=== PATIENT | male | born 1975 | race Two or more races ===

== ENCOUNTER 2017-11-30 12:00 | Emergency (ER) | payer OTHER, SELFPAY ==
[2017-11-30 14:34] VITALS: BP 112/69; PULSE 61; RESP 18; TEMP 36.6; O2SAT 100; BMI 25.0
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
[2017-11-30 15:47] VITALS: BP 138/77; PULSE 76; RESP 22; TEMP 36.7; O2SAT 98
== END 2017-11-30 15:49 | disposition home or self-care (01) ==
PROVIDERS: Emergency Provider Nurse Practitioner Family; Family Provider Family Medicine; PCP Family Medicine
DX: S80.12XA Contusion of left lower leg, initial encounter (principal); W22.8XXA Striking against or struck by other objects, initial encounter; Y92.73 Farm field as the place of occurrence of the external cause; E11.9 Type 2 diabetes mellitus without complications; Z79.84 Long term (current) use of oral hypoglycemic drugs; F17.210 Nicotine dependence, cigarettes, uncomplicated
CPT/HCPCS: 73590; 99202

== ENCOUNTER 2021-07-28 09:31 | Emergency (ER) | payer BC, SELFPAY ==
[2021-07-28 09:35] VITALS: BP 124/74; PULSE 77; RESP 21; TEMP 36.6; O2SAT 98; BMI 26.2
--- NOTE | 2021-07-28 10:09 | HMH.EDUTC ---
[facility] [place] Disposition Clinical Impression: Strep sore throat Disposition: Home, Self-Care Condition on Discharge: Good Instructions: DI for COVID-19 (Suspected or Confirmed ), Preventing the Spread of Coronavirus Discharge Instructions Additional Instructions: covid swab was sent to lab, call later today for results. self isolate until test results are known to be negative No sign of a bacterial infection. Likely viral. Viruses can take 7-14 days to run their course. Nasal saline and bulb syringe or nose [place] to remove nasal drainage to help with nasal congestion. Hard to eat, drink, sleep with nasal congestion so important to keep this cleaned out. Monitor temp. Tylenol or Motrin as needed for pain or fever Encourage fluids, water, Gatorade, Powerade, Pedialyte if infant/toddler/child Warm salt water gargles Warm fluids Sore throat lozenges Sleep elevated Humidifier/vaporizer Follow-up immediately for new or worsening symptoms or no noticeable improvement over the next 48-72 hours. Referrals: Mariel Ferreira [Primary Care Provider] - Time of Disposition: 10:15 Medical Decision Making - Hunter Inquiry Pt receiving controlled substance: No Vital Signs: 07/28/21 09:35 Temperature 97.9 F Temperature Source Oral Pulse Rate [Right Brachial] 77 Respiratory Rate 21 Blood Pressure [Right Arm] 124/74 Blood Pressure Mean [Right Arm] 90 Blood Pressure Source [Right Arm] Automatic Cuff Blood Pressure Position [Right Arm] Sitting 02 Sat by Pulse Oximetry 98 Oxygen Delivery Method Room Air Orders (Tests/Meds): ORDERS Category Date Time Status Covid-19 Nasal PCR ([place]) Routine Lab 07/28/21 09:45 Received [facility] [place] HPI - General Chief complaint: [facility]gent [facility] Stated complaint: congestion Time Seen by Provider: 07/28/21 10:09 Mode of Arrival: Ambulatory Source of Information: Patient Limitations: No Limitations Description of Symptoms (Recalled from Triage Doc. by RN): PATIENT C/O CONGESTION X 2 DAYS HEENT Symptoms (Recalled from RN notes): Yes Resp Symptoms (Recalled from RN notes): No Skin Symptoms (Recalled from RN notes): No MS Symptoms (Recalled from RN notes): No Functional Status (Recalled from RN notes): WNL - History of Present Illness Provider Complaint: 46 yr old male presents for sore throat,congestion and headache for 2 days - Related Data Home Medications Medication Instructions Recorded Confirmed Metformin HCl [Metformin 850mg 850 mg PO DAILY 11/30/17 04/27/19 Tablet] Previous Rx's Medication Instructions Recorded albuterol sulfate 90 mcg/actuation 2 puff INHALATION Q6H PRN 7 Days 04/27/19 aerosol inhaler #6.7 g amoxicillin 500 mg capsule 500 mg PO Q12H 10 Days #20 cap 04/27/19 Allergies Allergy/AdvReac Type Severity Reaction Status Date / Time No Known Allergies Allergy Verified 04/27/19 19:28 - Worker's Comp Is this a Worker's Comp case?: No [place] History - Hepatitis A Screen Drug use history?: No High risk sexual behaviors?: No History of sexually transmitted infection?: No Currently employed?: No Childcare worker?: No Do you have indoor plumbing?: Yes Do you have electricity?: Yes Attestation statement:: This patient has been screened for Hepatitis A risk factors. I have reviewed the patient's past medical history: Yes Medical History: Reports:: Cancer, Diabetes Mellitus Type 2 Denies:: Diabetes Mellitus Type 1, Hypertension, MRSA Other Surgeries: Yes: Other Amputation: No - Social History Smoking Status: Current every day smoker Tobacco Type: cigarettes Alcohol Intake: current Alcohol Intake Frequency:: holidays/special occasions only Substance Use Type: denies use Occupational Status: employed Housing: house Household Members: family Family Hx:: Non-contributory ROS Obtained: Yes Systems reviewed as appropriate & no additional complaints - Constitutional Constitutional: Reports system reviewed and no additional complaints, excep
[2021-07-28 10:16] VITALS: BP 124/74; PULSE 77; RESP 21; TEMP 36.6; O2SAT 98
[2021-07-28 10:17] LABS: UTC Strep Screen (Rapid) Negative (Negative)
== END 2021-07-28 10:26 | disposition home or self-care (01) ==
PROVIDERS: Emergency Provider Nurse Practitioner Family; PCP Physician Assistant
DX: J02.0 Streptococcal pharyngitis (principal)
CPT/HCPCS: 87880; 99203; C9803; G0463; U0003; U0005

== ENCOUNTER 2022-02-02 14:01 | Emergency (ER) | payer BC, SELFPAY ==
[2022-02-02 14:02] VITALS: BP 105/67; PULSE 71; RESP 17; TEMP 36.6; O2SAT 100; BMI 24.3
--- NOTE | 2022-02-02 14:39 | HMH.EDABDPAI ---
ED Disposition Clinical Impression: Abdominal pain Qualifiers: Abdominal location: generalized Qualified Code(s): R10.84 - Generalized abdominal pain Disposition: Home, Self-Care Condition on Discharge: Fair Instructions: DI for Acute Abdominal Pain Additional Instructions: Please follow-up with your primary care doctor in about 1 week if your symptoms do not improve. Meanwhile continue taking all your medications as prescribed. You may consider taking some [id number] antacids for your symptoms to see if that improves. Return to the emergency department immediately if your symptoms worsen or if you feel any new symptoms. Referrals: Aria Colon APRN [Primary Care Provider] - - Critical Care Critical Care Time: No Attestation: On 02/02/22, the high probability of a clinically significant, sudden or life threatening deterioration of the following system(s) required my full and direct attention, intervention and personal management. The time I documented below is in addition to time spent performing reported procedures but includes the following listed in this critical care notation. Medical Decision Making - Medical Records Medical records reviewed: Yes: I reviewed the patient's medical records. - Hunter Inquiry Pt receiving controlled substance: No Vital Signs: 02/02/22 14:02 02/02/22 15:00 02/02/22 15:30 Temperature 97.9 F Temperature Source Oral Pulse Rate 68 62 Pulse Rate [Right] 71 Respiratory Rate 17 16 17 Blood Pressure 108/77 L 116/79 Blood Pressure [Right Arm] 105/67 L Blood Pressure Mean 87 90 Blood Pressure Mean [Right Arm] 79 Blood Pressure Source [Right Arm] Automatic Cuff Blood Pressure Position [Right Arm] Supine 02 Sat by Pulse Oximetry 100 100 100 Oxygen Delivery Method Room Air - Lab Data Lab results reviewed: Yes: I reviewed the patient's lab results. Lab Results 02/02/22 16:07: WBC 4.8, RBC 4.69, Hgb 15.1, Hct 46.2, MCV 98.6 H, MCH 32.2 H, MCHC 32.7, RDW 13.0, Plt Count 197, MPV 9.0, Neut % (Auto) 61.2, Lymph % (Auto) 29.5, Barren % (Auto) 5.8, Eos % (Auto) 2.9, Baso % (Auto) 0.5, Neut # (Auto) 3.0, Lymph # (Auto) 1.4, Barren # (Auto) 0.3, Eos # (Auto) 0.1, Baso # (Auto) 0.0 02/02/22 16:07: Sodium 140, Potassium 4.5, Chloride 104, Carbon Dioxide 32 H, Anion Gap 8.5, BUN 10, Creatinine 0.70, Estimated Creat Clear 130, Estimated GFR 121, Est GFR ( Amer) 146, Glucose 226 H, Calcium 8.6, Total Bilirubin 0.6, AST 26, ALT 29, Alkaline Phosphatase 62, Total Protein 7.0, Albumin 4.5, Globulin 2.5, Albumin/Globulin Ratio 1.8, Lipase 166 02/02/22 17:24: Urine Color Yellow, Urine Appearance Clear, Urine pH 7.0, Ur Specific [place] 1.020, Urine Protein Negative, Urine Glucose (UA) 3+, Urine Ketones Negative, Urine Blood Negative, Urine Nitrate Negative, Urine Bilirubin Negative, Urine Urobilinogen 0.2, Ur Leukocyte Esterase Negative, Urine WBC Occasional Result diagrams: 02/02/22 16:07 02/02/22 16:07 Orders (Tests/Meds): ED MEDICATIONS Generic Name Dose Route Start Last Admin Trade Name Freq PRN Reason Stop Dose Admin Sodium Chloride 10 ml 02/02/22 16:02 Sodium Chloride 0.9% 10ml Flush Syringe IV 03/04/22 16:01 NEEDED PRN Maintain IV Site Discontinued Medications Generic Name Dose Route Start Last Admin Trade Name Freq PRN Reason Stop Dose Admin Diatrizoate Meglum/Diatrizoate Sod 30 ml 02/02/22 14:45 02/02/22 15:28 Diatrizoate Jocelyne 66% & Diatrizoate Na 10% 30ml Udc PO 02/02/22 14:46 30 ml ONCE ONE Administration Iopamidol 75 ml 02/02/22 17:17 02/02/22 17:18 Iopamidol-370 (76%);100ml Bottle IV 02/02/22 17:18 75 ml ONCE ONE Administration Sodium Chloride 10 ml 02/02/22 17:17 02/02/22 17:19 Sodium Chloride 0.9% 10ml Syr (Rad Only) IV 02/02/22 17:18 10 ml ONCE ONE Administration Medical Decision Narrative: The patient's work-up in the emergency department and not reveal any life-threatening or d
--- NOTE | 2022-02-02 14:45 | CT_ITS ---
PROCEDURE INFORMATION: Exam: CT Abdomen And Pelvis With Contrast Exam date and time: 02/02/2022 5:09 PM Age: 46 years old Clinical indication: Abdominal pain; Acute TECHNIQUE: Imaging protocol: Computed tomography of the abdomen and pelvis with contrast. Radiation optimization: All CT scans at this facility use at least one of these dose optimization techniques: automated exposure control; mA and/or kV adjustment per patient size (includes targeted exams where dose is matched to clinical indication); or iterative reconstruction. Contrast material: ISOVUE; Contrast volume: 75 ml; Contrast route: IV; Other contrast: Oral, gastrografin , 50ml ; COMPARISON: No relevant prior studies available. FINDINGS: Liver: Normal. No mass. Gallbladder and bile ducts: Normal. No calcified stones. No ductal dilation. Pancreas: Normal. No ductal dilation. Spleen: Scattered granulomas are demonstrated in the spleen. Adrenal glands: Normal. No mass. Kidneys and ureters: Normal. No hydronephrosis. Stomach and bowel: Unremarkable. No obstruction. No mucosal thickening. Appendix: No evidence of appendicitis. Intraperitoneal space: Unremarkable. No free air. No significant fluid collection. Arteries: Unremarkable. No abdominal aortic aneurysm. Lymph nodes: Unremarkable. No enlarged lymph nodes. Urinary bladder: Unremarkable as visualized. Reproductive: Unremarkable as visualized. Bones/joints: Postoperative change consistent with anterior posterior spinal fusion at L5-S1. Soft tissues: Unremarkable. IMPRESSION: 1. Evidence of prior granulomatous disease. 2. No evidence of acute soft tissue or osseous abnormality.
[2022-02-02 15:00] VITALS: BP 108/77; PULSE 68; RESP 16; O2SAT 100
[2022-02-02 15:30] VITALS: BP 116/79; PULSE 62; RESP 17; O2SAT 100
--- NOTE | 2022-02-02 15:40 | PC.NURSE ---
PT finished contrast at this time. Notified rad. Advised pt he would be going for CT scan in approx. 1 10/28. No new needs at this time
[2022-02-02 16:21] LABS: Basophils % 0.5 % (0.1-2.0); Eosinophils # 0.1 K/mm3 (0.0-0.4); Eosinophils % 2.9 % (0.1-12.0); Hematocrit 46.2 % (42.0-52.0); Hemoglobin 15.1 g/dL (14.1-18.0); Lymphocytes # 1.4 K/mm3 (0.7-4.5); Lymphocytes % 29.5 % (10-50); Mean Corpuscular HGB Conc 32.7 g/dL (31.8-35.4); Mean Corpuscular Hemoglobin 32.2 pg (27.0-31.2); Mean Corpuscular Volume 98.6 fl (80-94); Monocytes # 0.3 K/mm3 (0.1-1.0); Monocytes % 5.8 % (1.7-9.3); Neutrophils % 61.2 % (37.0-80.0); Platelet Count 197 K/mm3 (142-424); Red Blood Count 4.69 M/mm3 (4.60-6.20); White Blood Count 4.8 K/mm3 (4.8-10.8)
[2022-02-02 16:28] LABS: Chloride 104 mmol/L (98-107); Potassium 4.5 mmoL/L (3.5-5.1); Sodium 140 mmol/L (136-145)
[2022-02-02 16:31] LABS: Alanine Aminotransferase 29 U/L (12-78); Albumin Level 4.5 g/dl (3.5-5.0); Albumin/Globulin Ratio 1.8 (1.1-1.8); Alkaline Phosphatase 62 U/L (38-126); Anion Gap 8.5 mEq/L (5-15); Aspartate Amino Transferase 26 U/L (17-59); Bilirubin,Total 0.6 mg/dl (0.2-1.3); Blood Urea Nitrogen 10 mg/dl (9-20); Calcium 8.6 mg/dl (8.4-10.2); Carbon Dioxide 32 mmol/L (22.0-30.0); Creatinine Clearance Estimated 130 mL/min (50-200); Estimated Glomerular Filt Rate 121 ml/min (>60); GFR (African American) 146 ML/MIN (>60); Globulin 2.5 g/dL (1.3-3.2); Glucose 226 mg/dl (74-100); Lipase 166 U/L (23-300)
--- NOTE | 2022-02-02 17:20 | PC.NURSE ---
PT returned from CT
[2022-02-02 17:33] LABS: Microscopic, Urine URINE MICROSCOPIC (MICROSCOPIC)
[2022-02-02 17:46] LABS: Appearance,Urine CLEAR (Clear); Bilirubin,Urine Negative (Negative); Blood, Urine Negative (Negative); Color,Urine YELLOW (Yellow); Glucose,Urine (UA) 3+ (Negative); Ketones,Urine Negative (Negative); Leukocyte Esterase,Urine Negative (Negative); Nitrate,Urine Negative (Negative); Protein,Urine Negative (Negative); Urobilinogen,Urine 0.2 EU/dl (0.2)
[2022-02-02 18:00] LABS: WBC,Urine Occasional #/hpf (0-3)
[2022-02-02 18:29] VITALS: BP 108/65; PULSE 60; RESP 18; TEMP 36.6; O2SAT 100
== END 2022-02-02 18:30 | disposition home or self-care (01) ==
PROVIDERS: Emergency Provider Emergency Medicine; PCP Nurse Practitioner Family
DX: R10.84 Generalized abdominal pain (principal); M54.50 Low back pain, unspecified; E11.65 Type 2 diabetes mellitus with hyperglycemia; K59.00 Constipation, unspecified; F17.210 Nicotine dependence, cigarettes, uncomplicated; Z79.52 Long term (current) use of systemic steroids; Z79.51 Long term (current) use of inhaled steroids; Z79.84 Long term (current) use of oral hypoglycemic drugs; Z85.9 Personal history of malignant neoplasm, unspecified
CPT/HCPCS: 74177; 80053; 81001; 83690; 85025; 99284; Q9967

== ENCOUNTER 2022-05-15 20:06 | Emergency (ER) | payer BC, SELFPAY ==
[2022-05-15 20:07] VITALS: BP 118/75; PULSE 70; RESP 18; TEMP 36.7; O2SAT 97; BMI 24.3
--- NOTE | 2022-05-15 21:31 | HMH.EDEYEP ---
ED Disposition Clinical Impression: Corneal abrasion Qualifiers: Encounter type: initial encounter Laterality: left Qualified Code(s): S05.02XA - Injury of conjunctiva and corneal abrasion without foreign body, left eye, initial encounter Disposition: Home, Self-Care Condition on Discharge: Good Instructions: DI for Corneal Abrasion Additional Instructions: see eye provider in am Referrals: Aria Colon APRN [Primary Care Provider] - - Critical Care Critical Care Time: No Attestation: On 05/15/22, the high probability of a clinically significant, sudden or life threatening deterioration of the following system(s) required my full and direct attention, intervention and personal management. The time I documented below is in addition to time spent performing reported procedures but includes the following listed in this critical care notation. Medical Decision Making - Medical Records Medical records reviewed: Yes: I reviewed the patient's medical records. - Hunter Inquiry Pt receiving controlled substance: No Vital Signs: 05/15/22 20:07 Temperature 98.1 F Temperature Source Oral Pulse Rate [Right] 70 Respiratory Rate 18 Blood Pressure [Right Arm] 118/75 Blood Pressure Mean [Right Arm] 89 02 Sat by Pulse Oximetry 97 - Lab Data Lab results reviewed: Yes: I reviewed the patient's lab results. Medical Decision Narrative: has acute lt corneal abrasion - patched eye and will ask pt to see eye dr in am Eye Problem HPI - General Chief complaint: Eye Problems Stated complaint: [id number]/@1800 Left eye injury Time Seen by Provider: 05/15/22 20:45 Mode of Arrival: Ambulatory Source of Information: Patient, Medical Record Limitations: No Limitations Description of Symptoms (Recalled from ER Triage Doc. by RN): pt states was lifting chicken cage and piece of wire scratched lt eye - History of Present Illness HPI Narrative: scratched lt eye this afternoon with pain chief complaint: eye pain, eye injury Onset (ago): hour(s) Onset description: sudden Duration: constant Location: left eye Eye Symptoms: foreign body sensation Place: home Mechanism: direct trauma Severity: moderate Associated symptoms: none Treatments Prior to Arrival: none - Related Data Patient tetanus UTD: No Home Medications Medication Instructions Recorded Confirmed Metformin HCl [Metformin 850mg 850 mg PO DAILY 11/30/17 04/27/19 Tablet] Previous Rx's Medication Instructions Recorded albuterol sulfate 90 mcg/actuation 2 puff INHALATION Q6H PRN 7 Days 04/27/19 aerosol inhaler #6.7 g amoxicillin 500 mg capsule 500 mg PO Q12H 10 Days #20 cap 04/27/19 predniSONE [Prednisone 20mg 20 mg PO BID 3 Days #6 tab 07/28/21 Tab] Allergies Allergy/AdvReac Type Severity Reaction Status Date / Time No Known Allergies Allergy Verified 04/27/19 19:28 [facility] History - Hepatitis A Screen Attestation statement:: This patient has been screened for Hepatitis A risk factors. I have reviewed the patient's past medical history: Yes Medical History: Reports:: Cancer, Diabetes Mellitus Type 2 Denies:: Diabetes Mellitus Type 1, Hypertension, MRSA Other Surgeries: Yes: Other Amputation: No - Social History Smoking Status: Current every day smoker Tobacco Type: cigarettes Alcohol Intake: current Alcohol Intake Frequency:: holidays/special occasions only Substance Use Type: denies use Occupational Status: employed Housing: house Household Members: family Family Hx:: Non-contributory ROS Obtained: Yes All systems reviewed & no additional complaints - Constitutional Constitutional: Denies fever(s) - Eyes Eyes: Reports as per HPI, Denies change in vision, Denies eye discharge, Reports eye pain, Denies photophobia - ENT Ears, Nose, Mouth, and Throat: Denies facial pain - Cardiovascular Cardiovascular: Denies chest pain - Respiratory Respiratory: Denies dyspnea - Gastrointestinal Gastrointesting
[2022-05-15 21:49] VITALS: BP 118/75; PULSE 70; RESP 18; TEMP 36.7; O2SAT 97
== END 2022-05-15 21:50 | disposition home or self-care (01) ==
PROVIDERS: Emergency Provider Emergency Medicine; PCP Nurse Practitioner Family
DX: S05.02XA Injury of conjunctiva and corneal abrasion without foreign body, left eye, initial encounter (principal); Z23 Encounter for immunization
CPT/HCPCS: 90714; 99283

== ENCOUNTER 2022-09-30 10:52 | Emergency (ER) | payer BC, SELFPAY ==
[2022-09-30 13:10] VITALS: BP 131/76; PULSE 61; RESP 19; TEMP 36.7; O2SAT 99; BMI 24.8
--- NOTE | 2022-09-30 13:34 | EXP.UTC ---
Discharge Plan Disposition Patient Disposition: Home, Self-Care Condition: Good Prescriptions Prescriptions: New omeprazole 20 mg capsule,delayed release(DR/EC) 20 mg PO DAILY Qty: 30 0RF No Action albuterol sulfate 90 mcg/actuation HFA aerosol inhaler 2 puff INHALATION Q6H PRN (Reason: bronchitis) 7 Days Qty: 6.7 0RF Rx Instructions: administer with spacer amoxicillin 500 mg capsule 500 mg PO Q12H 10 Days Qty: 20 0RF prednisone 20 MG tablet 20 mg PO BID 3 Days Qty: 6 0RF metformin 850 MG tablet 850 mg PO DAILY Referrals Follow up/Referrals: Aria Colon APRN [Primary Care Provider] - See instructions Activity Restrictions/Add. Instructions Additional Instructions/Restrictions: Avoid GERD exacerbating agents (ETOH, caffeine, nicotine, chocolate, fatty foods) Sleep with head of bed elevated Avoid eating within 3hr of sleep Take medication as prescribed Avoid spicy or greasy foods Follow up with your Family Doctor for further evaluation and testing if needed Straight to The ER if any life threatening symptoms Clinical Impressions Clinical Impression: GERD (gastroesophageal reflux disease) Instructions Patient Instructions: Omeprazole, DI for Gastroesophageal Reflux Disease (GERD), GERD Diet, Heartburn -- Overview Discharge ED Provider: Alka Rome [facility] [place] General Stated complaint: Heartburn, constipation, burping, vomitting Mode of Arrival: Ambulatory Source of Information: Patient Limitations: No Limitations Time Seen by Provider: 09/30/22 13:41 Description of Symptoms (Recalled from Triage Doc. by RN): PATIENT C/O CONSTIPATION AND ACID REFLUX X 2 DAYS HEENT Symptoms (Recalled from RN notes): No Resp Symptoms (Recalled from RN notes): No Skin Symptoms (Recalled from RN notes): No MS Symptoms (Recalled from RN notes): No Functional Status (Recalled from RN notes): WNL History of Present Illness Provider Complaint: Patient states that he has bowel issues and he is on Linzess that he takes when he gets constipated and he took it and had large BM on Friday States that he has been having issues belching up acid States that when he lays down sometimes he will belch it up and it rodriguez his throat States that he gets heart burn after eating spicy foods and he has always eat them and not had it Denies abdominal pain denies vomiting blood Related Data Home Medications Medication Instructions Recorded Confirmed metformin 850 mg tablet 850 mg PO DAILY Diabetes 11/30/17 04/27/19 Previous Rx's Medication Instructions Recorded albuterol sulfate 90 mcg/actuation 2 puff inhalation Q6H PRN 04/27/19 aerosol inhaler bronchitis 7 days #6.7 grams amoxicillin 500 mg capsule 500 mg PO Q12H sinusitis 10 days 04/27/19 #20 caps prednisone 20 mg tablet 20 mg PO BID 3 days #6 tabs 07/28/21 omeprazole 20 mg capsule,delayed 20 mg PO DAILY #30 caps 09/30/22 release Allergies Allergy/AdvReac Type Severity Reaction Status Date / Time No Known Allergies Allergy Verified 04/27/19 19:28 Worker's Comp Is this a Worker's Comp case?: No [facility] Disclaimer: The information contained in this section may have been updated after the patient was seen, as this information can be updated by other users. Medical History (Updated 09/30/22 @ 14:11 by Alka Rome APRN) No significant past medical history Social History (Updated 09/30/22 @ 13:21 by Yuni Alston RN) Smoking Status: Current every day smoker tobacco type: cigarettes alcohol intake: current substance use type: denies use current occupational status: employed Travel in the last 8 weeks: None household members: family housing: house ROS Obtained: Yes All systems reviewed & no additional complaints except as documented and Yes Systems reviewed as appropriate & no additional complaints except as documented Constitutional Constitutional: Reports system reviewed and no additional complaints,
[2022-09-30 14:13] VITALS: BP 131/76; PULSE 61; RESP 19; TEMP 36.7; O2SAT 99
== END 2022-09-30 14:16 | disposition home or self-care (01) ==
PROVIDERS: Emergency Provider Nurse Practitioner; PCP Nurse Practitioner Family
DX: K21.9 Gastro-esophageal reflux disease without esophagitis (principal); K59.00 Constipation, unspecified; R11.10 Vomiting, unspecified
CPT/HCPCS: 99212; G0463

== ENCOUNTER 2023-04-14 17:08 | Emergency (ER) | payer BC, SELFPAY ==
[2023-04-14 17:20] VITALS: BP 118/79; PULSE 67; RESP 17; TEMP 36.8; O2SAT 100; BMI 23.4
[2023-04-14 17:39] LABS: UTC Strep Screen (Rapid) Negative (Negative)
[2023-04-14 17:40] VITALS: BP 118/79; PULSE 67; RESP 17; TEMP 36.8; O2SAT 100
--- NOTE | 2023-04-14 17:40 | EXP.UTC ---
Discharge Plan Disposition Patient Disposition: Home, Self-Care Condition: Good Prescriptions Prescriptions: New amoxicillin 875 mg tablet 875 mg PO Q12H Qty: 20 0RF fluticasone propionate [Flonase Allergy Relief] 50 mcg/actuation spray,suspension 1 - 2 spray intranasal DAILY Qty: 16 0RF Rx Instructions: administer into each nostril No Action albuterol sulfate 90 mcg/actuation HFA aerosol inhaler 2 puff INHALATION Q6H PRN (Reason: bronchitis) 7 Days Qty: 6.7 0RF Rx Instructions: administer with spacer amoxicillin 500 mg capsule 500 mg PO Q12H 10 Days Qty: 20 0RF prednisone 20 MG tablet 20 mg PO BID 3 Days Qty: 6 0RF omeprazole 20 mg capsule,delayed release(DR/EC) 20 mg PO DAILY Qty: 30 0RF metformin 850 MG tablet 850 mg PO DAILY Referrals Follow up/Referrals: Aria Colon APRN [Primary Care Provider] - See instructions Activity Restrictions/Add. Instructions Additional Instructions/Restrictions: *Monitor Temp, Over the counter Motrin or Tylenol as directed/as needed Tylenol every 4 hours and Motrin every 6 hours (as long as your family doctor has told you that you can take it) for fever or pain. and straight to ER if unable to lower temp less than 101.0 after medication given *Warm salt water gargles may help to soothe the throat *Throat Lozenges? *Warm fluids like tea with honey may help to soothe the throat? *Sleep elevated *Humidifier/Vaporizer *Flonase 2 sprays in each nostril daily but be aware that it may take 2-3 days before you notice improvement Your throat swab was sent for culture. Those results are typically sent to your primary care. Be sure to follow up in 2-3 days with your family doctor/primary care physician if no improvement so they can review those result and treat if necessary. If you don?t have a primary care doctor, I recommend you get one but in the mean time, you will have to return to a walk in clinic Follow up IMMEDIATELY for new or worsening symptoms or no Noticeable improvement over the next 48-72 hours. 911 for difficulty breathing or swallowing Clinical Impressions Clinical Impression: Pharyngitis Instructions Patient Instructions: Middle Ear Infection, Sore Throat Discharge ED Provider: Alka Rome [facility] General Stated complaint: sore throat, right ear pain Mode of Arrival: Ambulatory Source of Information: Patient and Significant Other Limitations: No Limitations Time Seen by Provider: 04/14/23 17:40 Description of Symptoms (Recalled from Triage Doc. by RN): PATIENT C/O SORE THROAT AND RIGHT EAR PAIN X 4 DAYS HEENT Symptoms (Recalled from RN notes): Yes Resp Symptoms (Recalled from RN notes): No Skin Symptoms (Recalled from RN notes): No MS Symptoms (Recalled from RN notes): No Functional Status (Recalled from RN notes): WNL History of Present Illness Provider Complaint: Patient states that he has been having sore throat and pain in his right ear for about 4 days that has continued to get worse States that hurts in his throat and ear when he swallows States that he has been having some drainage in the back of his throat and worse in the morning so today when he was still not feeling well he came in to get checked Related Data Home Medications Medication Instructions Recorded Confirmed metformin 850 mg tablet 850 mg PO DAILY Diabetes 11/30/17 04/27/19 Previous Rx's Medication Instructions Recorded albuterol sulfate 90 mcg/actuation 2 puff inhalation Q6H PRN 04/27/19 aerosol inhaler bronchitis 7 days #6.7 grams amoxicillin 500 mg capsule 500 mg PO Q12H sinusitis 10 days 04/27/19 #20 caps prednisone 20 mg tablet 20 mg PO BID 3 days #6 tabs 07/28/21 omeprazole 20 mg capsule,delayed 20 mg PO DAILY #30 caps 09/30/22 release amoxicillin 875 mg tablet 875 mg PO Q12H #20 tabs 04/14/23 fluticasone propionate 50 1 - 2 spray intranasal DAILY #16 04/14/23 mcg/actuation nasal grams spray,s
== END 2023-04-14 18:00 | disposition home or self-care (01) ==
PROVIDERS: Emergency Provider Nurse Practitioner; PCP Nurse Practitioner Family
DX: J02.9 Acute pharyngitis, unspecified (principal); H66.91 Otitis media, unspecified, right ear; F17.210 Nicotine dependence, cigarettes, uncomplicated
CPT/HCPCS: 87880; 99212; 99214; G0463

== ENCOUNTER 2023-05-28 00:36 | Emergency (ER) | payer BC, SELFPAY ==
[2023-05-28 00:38] VITALS: BP 156/87; PULSE 67; RESP 18; TEMP 36.6; O2SAT 98; BMI 24.2
--- NOTE | 2023-05-28 00:48 | ECG_ITS ---
APPROVED REPORT Exam: Resting ECG HR:63 bpm ECG Measurements Heart Rate 63 AXES TX 159 P 62 QRSd 96 QRS 56 QT 388 T 60 QTc 396 Conclusion SINUS RHYTHM NORMAL ECG UNCONFIRMED REPORT Electronically signed by : Itz Kenyon MD 05/28/2023 08:01:10
--- NOTE | 2023-05-28 00:54 | XR_ITS ---
PROCEDURE INFORMATION: Exam: XR Chest Exam date and time: 05/28/2023 12:57 AM Age: 47 years old Clinical indication: Cough; Additional info: Cough/ congestion TECHNIQUE: Imaging protocol: Radiologic exam of the chest. Views: 2 views. Total images: 2 COMPARISON: CT ABDOMEN PELVIS W CON 02/02/2022 5:09 PM FINDINGS: Lungs: Unremarkable. No consolidation. No pulmonary vascular congestion or edema. Pleural spaces: Unremarkable. No pleural effusion. No pneumothorax. Heart/Mediastinum: Unremarkable. No cardiomegaly. No mediastinal widening or hilar enlargement. Bones/joints: Unremarkable. IMPRESSION: No radiographically acute cardiopulmonary process.
--- NOTE | 2023-05-28 00:55 | HMH.EDGENADL ---
Discharge Plan Disposition Patient Disposition: Home, Self-Care Condition: Good Prescriptions Prescriptions: New tjmsurfajoimfba-[id number]-LS [Bromfed DM] 2-30-10 mg/5 mL syrup 5 ml PO Q6H PRN (Reason: congestion) Qty: 118 0RF No Action albuterol sulfate 90 mcg/actuation HFA aerosol inhaler 2 puff INHALATION Q6H PRN (Reason: bronchitis) 7 Days Qty: 6.7 0RF Rx Instructions: administer with spacer amoxicillin 500 mg capsule 500 mg PO Q12H 10 Days Qty: 20 0RF prednisone 20 MG tablet 20 mg PO BID 3 Days Qty: 6 0RF omeprazole 20 mg capsule,delayed release(DR/EC) 20 mg PO DAILY Qty: 30 0RF metformin 850 MG tablet 850 mg PO DAILY amoxicillin 875 mg tablet 875 mg PO Q12H Qty: 20 0RF fluticasone propionate [Flonase Allergy Relief] 50 mcg/actuation spray,suspension 1 - 2 spray intranasal DAILY Qty: 16 0RF Rx Instructions: administer into each nostril Referrals Follow up/Referrals: Aria Colon APRN [Primary Care Provider] - See instructions Activity Restrictions/Add. Instructions Additional Instructions/Restrictions: At this time was felt you are safe to be discharged home. If new or worsening symptoms please do not hesitate to return to the emergency department. Please take your medication as prescribed. Please continue to take your inhaler at home as needed. Clinical Impressions Clinical Impression: Viral respiratory infection Discharge ED Provider: Giuliano Krishnan General Adult HPI General Chief complaint: Shortness of Breath/Dyspnea Stated complaint: SOA,chest congestion Time Seen by Provider: 05/28/23 00:49 Mode of Arrival: Ambulatory Source of Information: Patient Limitations: No Limitations Description of Symptoms (Recalled from ER Triage Doc. by RN): Pt states he has had a cough for past week, today he felt worse and began feeling SOA. Pt also states he has nausea but no vomiting. History of Present Illness HPI narrative: Patient is a 47-year-old male with past medical history of psv-yelddwx-wscwvwllv diabetes, seasonal allergies who presents emergency department for evaluation of cough and congestion. Onset was acute, occurring 7 days ago. Due to worsening symptoms today he presents here for continued evaluation. Patient denies chest pain, abdominal pain, other acute complaints at this time. Patient has been using albuterol inhaler at home with some success. Related Data Home Medications Medication Instructions Recorded Confirmed metformin 850 mg tablet 850 mg PO DAILY Diabetes 11/30/17 04/27/19 Previous Rx's Medication Instructions Recorded albuterol sulfate 90 mcg/actuation 2 puff inhalation Q6H PRN 04/27/19 aerosol inhaler bronchitis 7 days #6.7 grams amoxicillin 500 mg capsule 500 mg PO Q12H sinusitis 10 days 04/27/19 #20 caps prednisone 20 mg tablet 20 mg PO BID 3 days #6 tabs 07/28/21 omeprazole 20 mg capsule,delayed 20 mg PO DAILY #30 caps 09/30/22 release amoxicillin 875 mg tablet 875 mg PO Q12H #20 tabs 04/14/23 fluticasone propionate 50 1 - 2 spray intranasal DAILY #16 04/14/23 mcg/actuation nasal grams spray,suspension (Flonase Allergy Relief) [id number] 5 ml PO Q6H PRN congestion #118 mL 05/28/23 2 mg-30 mg-10 mg/5 mL oral syrup (Bromfed DM) Allergies Allergy/AdvReac Type Severity Reaction Status Date / Time No Known Allergies Allergy Verified 04/27/19 19:28 [facility] Disclaimer: The information contained in this section may have been updated after the patient was seen, as this information can be updated by other users. Medical History (Updated 05/28/23 @ 01:53 by Giuliano Krishnan MD) No significant past medical history Social History (Updated 09/30/22 @ 13:21 by Yuni Alston RN) Smoking Status: Current every day smoker tobacco type: cigarettes alcohol intake: current substance use type: denies use current occupational status: employed Travel in the
--- NOTE | 2023-05-28 00:55 | PC.NURSE ---
called respiratory for duo neb
[2023-05-28 00:58] LABS: Coronavirus 19, PCR Not Detected (NotDetected); Influenza A, PCR Not Detected (NotDetected); Influenza B, PCR Not Detected (NotDetected)
[2023-05-28 01:00] VITALS: BP 135/81; PULSE 66; O2SAT 100
[2023-05-28 01:08] VITALS: PULSE 64
[2023-05-28 01:31] VITALS: BP 119/72; PULSE 62; O2SAT 97
[2023-05-28 02:04] VITALS: BP 117/78; PULSE 63; RESP 18; TEMP 36.6; O2SAT 97
== END 2023-05-28 02:11 | disposition home or self-care (01) ==
PROVIDERS: Emergency Provider Emergency Medicine; PCP Nurse Practitioner Family
DX: R06.02 Shortness of breath (principal); R05.9 Cough, unspecified; E11.9 Type 2 diabetes mellitus without complications; F17.210 Nicotine dependence, cigarettes, uncomplicated
CPT/HCPCS: 71046; 87636; 93005; 99284

== ENCOUNTER 2023-11-19 08:44 | Emergency (ER) | payer BC, SELFPAY ==
[2023-11-19 08:46] VITALS: BP 135/83; PULSE 79; RESP 16; TEMP 37.1; O2SAT 99; BMI 25.0
--- NOTE | 2023-11-19 08:50 | ECG_ITS ---
APPROVED REPORT Exam: Resting ECG HR:69 bpm ECG Measurements Heart Rate 69 AXES HI 137 P 63 QRSd 90 QRS 52 QT 361 T 57 QTc [address] ELEVATION, PROBABLY EARLY REPOLARIZATION [ST ELEVATION WITH NORMALLY INFLECTED T-WAVE] BORDERLINE ECG UNCONFIRMED REPORT Electronically signed by : Itz Kenyon MD 11/21/2023 14:45:47
--- NOTE | 2023-11-19 09:14 | XR_ITS ---
FINAL REPORT TECHNIQUE: Chest PA & Lateral CLINICAL HISTORY: cough, CP, shortness of breath COMPARISON: 05/28/2023 FINDINGS: 2 views of the chest were performed. The heart size is normal. The mediastinum is within normal limits. There is no acute cardiopulmonary process. There are no pleural effusions. There is no pneumothorax. The bony thorax appears intact. IMPRESSION: No acute cardiopulmonary process. Reviewed, Interpreted and Dictated by Manas Greenberg MD Transcribed by Shellie Angela Authenticated and [facility]
[2023-11-19] MEDS: ACETAMINOPHEN 1,000MG/100ML VIAL 1000 MG IV (09:20)
[2023-11-19] MEDS: LACTATED RINGERS 1000ML 1,000 ML 999 ML IV (09:20)
[2023-11-19] MEDS: KETOROLAC 30MG/ML VIAL 15 MG IV (09:20)
[2023-11-19 09:24] LABS: Basophils # 0.1 K/mm3 (0-0.2); Basophils % 0.6 % (0.1-2.0); Eosinophils # 0.1 K/mm3 (0.0-0.4); Hematocrit 40.5 % (42.0-52.0); Mean Corpuscular HGB Conc 34.6 g/dL (31.8-35.4); Mean Corpuscular Hemoglobin 33.5 pg (27.0-31.2); Mean Corpuscular Volume 96.9 fl (80-94); Mean Platelet Volume 8.7 fl (7.4-10.4); Monocytes # 0.4 K/mm3 (0.1-1.0); Monocytes % 5.4 % (1.7-9.3); Neutrophils # 5.7 K/mm3 (1.8-7.8); Neutrophils % 68.9 % (37.0-80.0); Platelet Count 168 K/mm3 (142-424); Red Blood Count 4.18 M/mm3 (4.60-6.20); White Blood Count 8.2 K/mm3 (4.8-10.8)
[2023-11-19 09:34] LABS: Acetone, Serum (Rapid) None Detected (None Detect)
[2023-11-19 09:35] LABS: Alanine Aminotransferase 35 U/L (12-78); Albumin Level 4.2 g/dl (3.5-5.0); Albumin/Globulin Ratio 1.8 (1.1-1.8); Alkaline Phosphatase 63 U/L (38-126); Aspartate Amino Transferase 31 U/L (17-59); Bilirubin,Total 0.3 mg/dl (0.2-1.3); Blood Urea Nitrogen 18 mg/dl (9-20); Calcium 8.5 mg/dl (8.4-10.2); Carbon Dioxide 27 mmol/L (22.0-30.0); Chloride 105 mmol/L (98-107); Creatinine Clearance Estimated 99 mL/min (50-200); Estimated Glomerular Filt Rate 90 ml/min (>60); GFR (African American) 109 ML/MIN (>60); Globulin 2.3 g/dL (1.3-3.2); Glucose 191 mg/dl (74-100); Sodium 140 mmol/L (136-145); Total Protein,Serum 6.5 g/dl (6.3-8.2)
[2023-11-19 09:37] LABS: Coronavirus 19, PCR Not Detected (NotDetected); Influenza A, PCR Not Detected (NotDetected); Influenza B, PCR Not Detected (NotDetected)
--- NOTE | 2023-11-19 09:39 | ED_ITS ---
Discharge Plan Disposition Patient Disposition: Home, Self-Care Condition: Good Prescriptions Prescriptions: No Action albuterol sulfate 90 mcg/actuation HFA aerosol inhaler 2 puff INHALATION Q6H PRN (Reason: bronchitis) 7 Days Qty: 6.7 0RF Rx Instructions: administer with spacer amoxicillin 500 mg capsule 500 mg PO Q12H 10 Days Qty: 20 0RF prednisone 20 MG tablet 20 mg PO BID 3 Days Qty: 6 0RF omeprazole 20 mg capsule,delayed release(DR/EC) 20 mg PO DAILY Qty: 30 0RF thhmjcfysqsbsit-epaawzbzt-XJ [Bromfed DM] 2-30-10 mg/5 mL syrup 5 ml PO Q6H PRN (Reason: congestion) Qty: 118 0RF metformin 850 MG tablet 850 mg PO DAILY amoxicillin 875 mg tablet 875 mg PO Q12H Qty: 20 0RF fluticasone propionate [Flonase Allergy Relief] 50 mcg/actuation spray,suspension 1 - 2 spray intranasal DAILY Qty: 16 0RF Rx Instructions: administer into each nostril Referrals Follow up/Referrals: Ananda Gentile MD [Primary Care Provider] - See instructions Activity Restrictions/Add. Instructions Additional Instructions/Restrictions: You were evaluated in the emergency department today. At this time, I feel that your symptoms are likely related to a viral upper respiratory infection. Your high blood sugar is likely related to your steroid use. Please keep a log of your blood sugars at home and provide this to your primary care provider. They can make adjustments to your medications as needed. Make sure that you are staying hydrated and eating foods that are low in sugars. Return to the emergency department for new or worsening symptoms. Clinical Impressions Clinical Impression: Viral URI with cough, Hyperglycemia Instructions Patient Instructions: DI for Viral Upper Respiratory Infection -- Adult, DI for Hyperglycemia -- Adult Discharge ED Provider: Toya Mahajan General Adult HPI General Chief complaint: Recheck/Abnormal Lab/Rx Stated complaint: diabetes dry mouth frequent urination Time Seen by Provider: 11/19/23 09:01 Mode of Arrival: Ambulatory Source of Information: Patient Limitations: No Limitations Description of Symptoms (Recalled from ER Triage Doc. by RN): Patient reports dry mouth, frequent urination, increased blood sugars and runny nose. Upon arrival to ER patient started to complain of chest pain as he was walking back to his room. Per family member they are working on getting his diabetic medication regulated and has an appointment tomorrow to follow up on that. History of Present Illness HPI narrative: This patient is a 48-year-old male presenting to the emergency department with high blood sugar readings at home. He notes he has a history of diabetes, for which he takes metformin. Patient had upper respiratory infection symptoms over the last several days, so he saw his primary care provider who prescribed him steroids and antibiotics. After taking the steroids, he noted his blood sugars much higher than usual. He states that it is typically under 200 and anywhere from 80-170. He states that since starting the steroids, he has been above 200. He also notes that he feels like his mouth is dry and he feels excessive thirst. He has also been urinating more frequently. He is still having some cough, congestion, runny nose, and chest tightness. He notes that he called his primary care provider, who advised that he come to the ED. Fingerstick blood gl ucose upon arrival was 195. Related Data Home Medications Medication Instructions Recorded Confirmed metformin 850 mg tablet 850 mg PO DAILY Diabetes 11/30/17 04/27/19 Previous Rx's Medication Instructions Recorded albuterol sulfate 90 mcg/actuation 2 puff inhalation Q6H PRN 04/27/19 aerosol inhaler bronchitis 7 days #6.7 grams amoxicillin 500 mg capsule 500 mg PO Q12H sinusitis 10 days 04/27/19 #20 caps prednisone 20 mg tablet 20 mg PO BID 3 days #6 tabs 07/28/21 omeprazole 20 mg capsule,delayed 20 mg PO DAILY #30 caps 09/30/22 release amoxicillin 875 mg tablet 875 mg PO Q12H #20 tabs 04/14/23 fluticasone propionate 50 1 - 2 spray intranasal DAILY #16 04/14/23 mcg/actuation nasal grams spray,suspension (Flonase Allergy Relief) udjuuzgorvraxzt-[id number]-SP 5 ml PO Q6H PRN congestion #118 mL 05/28/23 2 mg-30 mg-10 mg/5 mL oral syrup (Bromfed DM) Allergies Allergy/AdvReac Type Severity Reaction Status Date / Time No Known Allergies Allergy Verified 04/27/19 19:28 [facility] Disclaimer: The information contained in this section may have been updated after the patient was seen, as this information can be updated by other users. Medical History No significant past medical history Social History Smoking Status: Current every day smoker tobacco type: cigarettes alcohol intake: current substance use type: denies use current occupational status: employed Travel in the last 8 weeks: None household members: family housing: house ROS Obtained: Yes All systems reviewed & no additional complaints except as documented Physical Exam General General appearance: alert and in no apparent distress Head Head exam: atraumatic and normocephalic Eye Eye exam: Present normal appearance, PERRL and EOMI ENT ENT exam: Present normal exam, normal oropharynx, mucous membranes moist and normal external ear exam Neck Neck exam: Present normal inspection, full ROM and trachea midline; Absent tenderness Chest Chest inspection: Present normal inspection and symmetric chest wall rise; Absent tenderness Respiratory Respiratory exam: Present normal lung sounds bilaterally; Absent respiratory distress, wheezes, stridor or accessory muscle use Cardiovascular Cardiovascular exam: Present regular rate and normal rhythm Abdominal Exam Abdominal exam: Present soft; Absent distention, tenderness or guarding Extremities Exam Extremities exam: Present normal inspection, full ROM and normal capillary refill; Absent tenderness or edema Back Exam Back exam: Present normal inspection and full ROM; Absent tenderness Neurological Exam Neurological exam: Present alert, oriented X3, CN II-XII intact and normal gait; Absent motor sensory deficit Psychiatric Psychiatric exam: Present normal affect and normal mood Skin Skin exam: Present warm and dry Medical Decision Making Medical Records Medical records reviewed: Yes I reviewed the patient's medical records. [place] Inquiry Pt receiving controlled substance: No Vital Signs: 11/19/23 08:46 11/19/23 12:39 11/19/23 12:40 Temperature 98.8 F 98.8 F 98.8 F Temperature Source Oral Oral Oral Pulse Rate 69 Pulse Rate [Radial] 79 69 Respiratory Rate 16 16 16 Blood Pressure 135/83 Blood Pressure [Right Arm] 135/83 135/83 Blood Pressure Mean [Right Arm] 100 100 Blood Pressure Source Automatic Cuff Blood Pressure Source [Right Arm] Automatic Cuff Automatic Cuff Blood Pressure Position Sitting Blood Pressure Position [Right Arm] Sitting Sitting 02 Sat by Pulse Oximetry 99 100 Oxygen Delivery Method Room Air Room Air Room Air Lab Data Lab results reviewed: Yes I reviewed the patient's lab results. Lab Results 11/19/23 08:56: WBC 8.2, RBC 4.18 L, Hgb 14.0 L, Hct 40.5 L, MCV 96.9 H, MCH 33.5 H, MCHC 34.6, RDW 13.0, Plt Count 168, MPV 8.7, Neut % (Auto) 68.9, Lymph % (Auto) 24.0, [place] % (Auto) 5.4, Eos % (Auto) 1.0, Baso % (Auto) 0.6, Neut # (Auto) 5.7, Lymph # (Auto) 2.0, [place] # (Auto) 0.4, Eos # (Auto) 0.1, Baso # (Auto) 0.1, Sodium 140, Potassium 4.0, Chloride 105, Carbon Dioxide 27, Anion Gap 12.0, BUN 18, Creatinine 0.90, Estimated Creat Clear 99, Estimated GFR 90, Est GFR ( Amer) 109, Glucose 191 H, Calcium 8.5, Total Bilirubin 0.3, AST 31, ALT 35, Alkaline Phosphatase 63, Troponin I < 0.01, Total Protein 6.5, Alb umin 4.2, Globulin 2.3, Albumin/Globulin Ratio 1.8, TSH 1.62, Thyroxine (T4) 11.0, Acetone Level None detected 11/19/23 09:13: VBG pH 7.31, VBG pCO2 46.5, VBG pO2 51.1 H, VBG HCO3 23.1, VBG Total CO2 24.5, VBG O2 Saturation 84.7 H, VBG Base Excess -3.1 L 11/19/23 09:33: SARS-CoV-2 (PCR) Not detected, Influenza A Untype (PCR) Not detected, Influenza Type B (PCR) Not detected 11/19/23 10:55: Troponin I < 0.01 11/19/23 08:56 11/19/23 08:56 Orders (Tests/Meds): ED MEDICATIONS Discontinued Medications Generic Name Dose Route Start Last Admin Trade Name Freq PRN Reason Stop Dose Admin Acetaminophen 1,000 mg 11/19/23 09:13 11/19/23 09:20 Acetaminophen 1,000mg/100ml Vial IV 11/19/23 09:14 1,000 mg ONCE ONE Administration Lactated Ringer's 1,000 mls @ 999 mls/hr 11/19/23 09:13 11/19/23 09:20 Lactated Ringer's 1000 Ml Bag IV 11/19/23 10:13 999 mls/hr .Q1H1M ONE Administration Ketorolac Tromethamine 15 mg 11/19/23 09:13 11/19/23 09:20 Ketorolac 30mg/Ml Vial IV 11/19/23 09:14 15 mg ONCE ONE Administration Sodium Chloride 10 ml 11/19/23 08:57 Sodium Chloride 0.9% 10ml Flush Syringe IV 12/19/23 08:56 NEEDED PRN Maintain IV Site ORDERS Category Date Time Status XR chest 2V Stat Exams 11/19/23 09:14 Completed Acetone, Serum (Rapid) Stat Lab 11/19/23 08:56 Completed Complete Blood Count Auto Diff Stat Lab 11/19/23 08:56 Completed Comprehensive Metabolic Panel Stat Lab 11/19/23 08:56 Completed Rapid PCR Covid and Flu A/B Stat Lab 11/19/23 09:33 Completed T4 (Thyroxine) Stat Lab 11/19/23 08:56 Completed Thyroid Stimulating Hormone Stat Lab 11/19/23 08:56 Completed Troponin I Q3H Lab 11/19/23 10:55 Completed Troponin I Stat Lab 11/19/23 08:56 Completed Venous Blood Gas Stat RT 11/19/23 09:13 Completed ECG initial [place] Routine Y 11/19/23 08:50 Completed ECG Data Tracing #1: I reviewed this ECG and interpreted as documented below: Normal sinus rhythm with a ventricular rate of 69 bpm. Benign early repolarization noted. No acute ST elevations concerning for ischemia. ECG initial impression date: 11/19/23 ECG initial impression time: 08:52 HEART Score History (anamnesis): Slightly suspicious ECG: Normal Age: 45-65 years Risk factors: 1-2 risk factors Troponin: </= normal limit HEART Score: 2 Medical Decision Narrative: In summary, this patient is a 48-year-old male presenting to the Emergency Department for evaluation of URI symptoms, chest tightness, as well as high blood glucose readings in the setting of steroid use for his URI. Differential diagnoses considered include but are not limited to hyperglycemia, DKA, HHS, viral syndrome, pneumonia, bronchitis. Ruling out the most morbid conditions drove assessment. On exam, the patient is well-appearing with reassuring vital signs on cardiac telemetry. Fingerstick glucose is 195. Workup included CBC, CMP, TSH, T4, troponin, VBG, acetone, chest x-ray, and EKG. He was given a bolus of IV fluids as well as IV Toradol and acetaminophen for symptomatic improvement. I independently interpreted x-ray prior to the radiologist read and noted no focal consolidation or other acute concerns. Please see their read for final interpretation. Labs were obtained that demonstrated no acutely concerning abnormalities at this time. troponin x 2 negative.. On reassessment, patient had good improvement after administration of interventions above. Advised that he stop taking the steroids, keep a log of his blood sugars, and follow-up with his primary care provider for reassessment. He expressed understanding agreement. He was discharged in stable condition after all questions were answered. Critical Care Critical Care Time Critical Care Time: No
[2023-11-19 09:47] LABS: Troponin I < 0.01 ng/ml (0.00-0.034)
[2023-11-19 09:50] LABS: VBG Base Excess -3.1 mmol/L (-2.4-2.3); VBG HCO3 23.1 mmol/L (23-30); VBG Oxygen Saturation 84.7 % (50-70); VBG PCO2 46.5 mmol/L (35-51); VBG PH 7.31 mmol/L (7.31-7.41); VBG PO2 51.1 mmol/L (28-40); VBG Total CO2 24.5 mmol/L (23-27)
[2023-11-19 10:06] LABS: Thyroid Stimulating Hormone 1.62 uIU/mL (0.465-4.68)
--- NOTE | 2023-11-19 12:00 | PC.NURSE ---
pt resting in bed at bs
[2023-11-19 12:27] LABS: Troponin I < 0.01 ng/ml (0.00-0.034)
[2023-11-19 12:39] VITALS: BP 135/83; PULSE 69; RESP 16; TEMP 37.1; O2SAT 100
[2023-11-19 12:40] VITALS: BP 135/83; PULSE 69; RESP 16; TEMP 37.1; O2SAT 100
== END 2023-11-19 12:40 | disposition home or self-care (01) ==
PROVIDERS: Emergency Provider Emergency Medicine; PCP Emergency Medicine
DX: R07.89 Other chest pain (principal); J06.9 Acute upper respiratory infection, unspecified; R05.9 Cough, unspecified; E11.65 Type 2 diabetes mellitus with hyperglycemia; R35.0 Frequency of micturition; F17.210 Nicotine dependence, cigarettes, uncomplicated
CPT/HCPCS: 71046; 80053; 82009; 82803; 84436; 84443; 84484; 85025; 87636; 93005; 96361; 96374; 96375; 99285; J0131